=== PATIENT | male | born 2000 | race Caucasian/White ===

== ENCOUNTER 2022-02-15 02:28 | Emergency (ER) | payer SELFPAY | END 2022-02-15 03:35 | disposition home or self-care (01) | LOC: JD.ED 02:28 | DX: S60.221A Contusion of right hand, initial encounter (principal); F17.210 Nicotine dependence, cigarettes, uncomplicated; Z86.16 Personal history of COVID-19; Z91.030 Bee allergy status; Z91.041 Radiographic dye allergy status; W22.09XA Striking against other stationary object, initial encounter | CPT/HCPCS: 73130-26-RT; 73130-RT; 99283 ==